=== PATIENT | male | born 1970 ===

== ENCOUNTER 2017-09-03 21:27 | Emergency (ER) | payer SELFPAY ==
[2017-09-03] MEDS ORDERED: LIDOCAINE 2% VISCOUS 15 ML UDC ONE (22:11)
[2017-09-03] MEDS ORDERED: ANTACID SUSP 30 ML UDC (MYLANTA) ONE (22:11)
== END 2017-09-03 21:30 ==
LOC: ER 21:30
DX: R07.9 Chest pain, unspecified (principal)